=== PATIENT | female | born 1950 | race Hispanic/Latino ===

== ENCOUNTER 2017-12-06 06:29 | Day surgery (SDC) | payer OTHER ==
[~2017-12-06] VITALS: Ht 149.9 cm; Wt 75.6 kg
[~2017-12-06 06:29] MED LIST: ASPI-555 PO; ATOR40TA71 PO; CALC-724 PO; LEVO75TA10 PO; LISI10TA7 PO; MECL-129 PO; METF500T6 PO; PANT40TA PO; SERT25TA5 PO; SODIUM CHLORIDE 0.9% 1000ML 1,000 ML IV ONE
[2017-12-06 06:55] VITALS: BP 117/58
== END 2017-12-06 09:10 | disposition home or self-care (01) ==
LOC: DAH 06:29 → ENDO 06:29
PROVIDERS: ATTEND Internal Medicine
DX: K29.50 Unspecified chronic gastritis without bleeding (principal); K31.89 Other diseases of stomach and duodenum; I10 Essential (primary) hypertension; G47.00 Insomnia, unspecified; F41.9 Anxiety disorder, unspecified; F32.9 Major depressive disorder, single episode, unspecified; K21.9 Gastro-esophageal reflux disease without esophagitis; K44.9 Diaphragmatic hernia without obstruction or gangrene; Z68.32 Body mass index [BMI] 32.0-32.9, adult; E78.5 Hyperlipidemia, unspecified; E03.9 Hypothyroidism, unspecified; E11.9 Type 2 diabetes mellitus without complications; Z79.84 Long term (current) use of oral hypoglycemic drugs; Z79.899 Other long term (current) drug therapy; Z90.49 Acquired absence of other specified parts of digestive tract; C7A.010 Malignant carcinoid tumor of the duodenum
CPT/HCPCS: 43231; 43237; 82948; 88305; 88312; 93005; A4606; J7030